=== PATIENT | female | born 1945 | race Caucasian/White ===

== ENCOUNTER → 2018-09-29 | Outpatient (CLI) | payer MEDICARE, BC ==
[2016-10-11 11:08] VITALS: BMI 27.4
[~2018-09-29] MED LIST: APIX5TAB; ASPI81TA86 PO; CALCIUM-MAG; FLE100 FT; FLE100 PO; FURO-45 PO; LEVO100T95 PO; LEVO200T44 PO; LEVO88TA45 PO; LISI5TAB25 PO; METO25TA23 PO; METO50TA19 PO; POTA10CA40 PO; RIVA20TA PO; SOT80 PO; TRIA1CAP85 PO; UBID10CA11 PO; WARF5TAB23 PO
--- NOTE | 2018-09-30 11:27 | RADIOLOGY IMAGING REPORT ---
FACILITY: [facility] - [place] PATIENT NAME: ROSANNA FLORENCE : [id number] MR: [id number] V: [id number] EXAM DATE: [id number] ORDERING PHYSICIAN: ANDREAS AGUILAR TECHNOLOGIST: Angelina Horn PROCEDURE:BILATERAL DIGITAL SCREENING MAMMOGRAM WITH CAD ASSISTED INTERPRETATION & 3D TOMOSYNTHESIS COMPARISON:Prior mammograms dated 09/04/10, 09/03/10, 01/05/08, 12/17/07 INDICATIONS:SCREENING FINDINGS: There are scattered areas of fibroglandular density in both breasts. The parenchymal pattern has remained stable allowing for difference in mammographic technique & patient positioning. Large rodlike calcifications are noted bilaterally. DIAGNOSTIC CATEGORY 2--BENIGN FINDING. RECOMMENDATIONS: ROUTINE MAMMOGRAM AND CLINICAL EVALUATION. IMPRESSION: BIRADS 2: Benign finding. No significant abnormality is seen. Dictated by: Rosanna Candelario M.D. on 09/29/2018 at 17:04 Transcribed by: RUFINA on 09/30/2018 at 10:13 Approved by: Rosanna Candelario M.D. on 09/30/2018 at 11:26 [facility]
== END ==
LOC: MAMO 00:41
PROVIDERS: ATTEND Family Medicine
DX: Z12.31 Encounter for screening mammogram for malignant neoplasm of breast (principal); Z80.3 Family history of malignant neoplasm of breast
CPT/HCPCS: 77063; 77067

== ENCOUNTER → 2018-12-22 | Outpatient (CLI) | payer MEDICARE, BC ==
[2016-10-11 11:08] VITALS: BMI 27.4
--- NOTE | 2018-12-22 15:48 | RADIOLOGY IMAGING REPORT ---
FACILITY: [facility] - [place] PATIENT NAME: Rosanna Aguillon : 1945 MR: [id number] V: [id number] EXAM DATE: ORDERING PHYSICIAN: [facility] TECHNOLOGIST: Location: [facility] - [place] Patient: Rosanna Aguillon : 1945 Visit/Account:[id number] Date of Sevice: 12/22/2018 ARTERIAL LOWER EXT LEFT HISTORY: The visualized pulmonary arteries was referral vascular disease COMPARISON: None. FINDINGS: The grayscale images of the common femoral artery is without hemodynamically significant disease. Wa veform morphology at the right common femoral artery is triphasic without significant blunting of the systolic deceleration curve to suggest significant inflow disease. There is a triphasic waveform wi thout significant blunting of the acceleration curve throughout the right superficial femoral artery, popliteal artery and to the distal portion posterior tibial artery. Anterior tibial artery is triph asic with a sharp acceleration curve. Peroneal artery is patent and multiphasic. Dorsalis pedis art savage is patent with triphasic is seen without significant blunting. Grayscale images demonstrate mini mal, nonhemodynamically significant disease. IMPRESSION: 1. 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 There is a three-vessel runoff to the left foot with triphasic distal waveforms. No evidence o f hemodynamically significant arterial disease. These findings could be correlated with an LOLY Report Dictated By: Shai Foote MD at 12/22/2018 3:39 PM Report E-Signed By: Shai Foote MD at 12/22/2018 3:44 PM WSN:[facility]
== END ==
LOC: US 01:10
PROVIDERS: ATTEND Podiatrist Foot & Ankle Surgery
DX: I73.9 Peripheral vascular disease, unspecified (principal)